=== PATIENT | male | born 1985 | race Caucasian/White ===

== ENCOUNTER 2019-03-26 16:28 | Emergency (ER) | payer MEDICARE, MEDICAID ==
[~2019-03-26] VITALS: Ht 170.2 cm; Wt 64.6 kg
[2019-03-26 16:33] VITALS: BP 106/63
== END 2019-03-26 17:27 | disposition home or self-care (01) ==
LOC: ED 17:21
DX: R53.83 Other fatigue (principal); Z72.9 Problem related to lifestyle, unspecified; Z72.89 Other problems related to lifestyle
CPT/HCPCS: 82962; 99283

== ENCOUNTER 2019-03-30 01:26 | Emergency (ER) | payer MEDICARE, MEDICAID ==
[~2019-03-30] VITALS: Ht 170.2 cm; Wt 67.8 kg
[2019-03-30 01:28] VITALS: BP 114/65
[2019-03-30] MEDS ORDERED: IBUPROFEN 600 MG TABLET ONE (01:50)
[2019-03-30] MEDS ORDERED: NEOSPORIN OINT. PKT 1 PACKET ONE (01:50)
--- NOTE | 2019-03-30 01:52 | NUR ---
pt medicated per jun. medicare compliance auditor at pt's side for b/l feet wound cleaning, apply bacitracin and dressing
[2019-03-30] MEDS ORDERED: IBUPROFEN 600 MG TABLET PO ONE (02:00)
== END 2019-03-30 02:05 | disposition home or self-care (01) ==
LOC: ED 02:04
DX: M79.671 Pain in right foot (principal); M79.672 Pain in left foot; Z72.9 Problem related to lifestyle, unspecified
CPT/HCPCS: 99283

== ENCOUNTER 2019-03-30 02:17 | Emergency (ER) | payer MEDICARE, MEDICAID ==
[~2019-03-30] VITALS: Ht 170.2 cm; Wt 67.8 kg
[2019-03-30 02:23] VITALS: BP 115/69
== END 2019-03-30 03:09 | disposition home or self-care (01) ==
LOC: ED 03:05
DX: Z02.9 Encounter for administrative examinations, unspecified (principal)

== ENCOUNTER 2019-06-19 14:09 | Emergency (ER) | payer MEDICARE, MEDICAID ==
[~2019-06-19] VITALS: Ht 170.2 cm; Wt 60.0 kg
[2019-06-19 14:14] VITALS: BP 121/74
--- NOTE | 2019-06-19 14:24 | NUR ---
BREAK RN: THIS IS A 34 YO M BR[facility]/ C/O FAILURE TO THRIVE. PT DENIES SI/HI. DENIES MEDICAL HX. VS STABLE. PT COOPERATIVE. BELONGINGS REMOVED AND PLACED IN BELONGINGS BAG. PT PLACED IN GOWN. CALL LIGHT IN REACH. AWAITING ED EVAL.
--- NOTE | 2019-06-19 14:28 | NUR ---
REPORT FROM REGI URRUTIA, MIRI TOWNSEND AT BEDSIDE.
--- NOTE | 2019-06-19 15:57 | NUR ---
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 DENIES SI/HI. PT LEFT WITHOUT RECIEVING DISCHARGE PAPERWORK.
== END 2019-06-19 15:59 | disposition home or self-care (01) ==
LOC: ED 14:49
DX: F22 Delusional disorders (principal)
CPT/HCPCS: 99283

== ENCOUNTER 2019-06-24 11:44 | Emergency (ER) | payer MEDICARE, MEDICAID ==
[~2019-06-24] VITALS: Ht 170.2 cm; Wt 58.8 kg
[2019-06-24] MEDS ORDERED: IBUPROFEN 800 MG TABLET PO ONE (13:30)
[2019-06-24] MEDS ORDERED: IBUPROFEN 800 MG TABLET ONE (13:57)
[2019-06-24 15:20] VITALS: BP 93/62
== END 2019-06-24 15:23 | disposition home or self-care (01) ==
LOC: ED 13:31
DX: M79.671 Pain in right foot (principal); M79.672 Pain in left foot
CPT/HCPCS: 99283